=== PATIENT | male | born 1990 | race African-American/Black ===

== ENCOUNTER 2020-08-18 21:13 | Emergency (ER) | payer OTHER, BC, SELFPAY ==
--- NOTE | ~2020-08-18 | XR_ITS ---
XR elbow LT min 3V 08/18/2020 22:58 INDICATION: Left elbow pain after fall PROCEDURE: 4 views left elbow COMPARISON: No prior studies for comparison. FINDINGS: Fracture, dislocation or subluxation is not identified. The soft tissues appear within norm al limits. No foreign bodies are identified. IMPRESSION: 1: NO ACUTE BONE OR JOINT ABNORMALITY IDENTIFIED. Reviewed, dictated and finalized at location A.
--- NOTE | ~2020-08-18 | XR_ITS ---
XR wrist LT min 3V 08/18/2020 22:57 INDICATION: Left wrist pain after fall PROCEDURE: 4 views left wrist COMPARISON: No prior studies for comparison. FINDINGS: Fracture, dislocation or subluxation is not identified. The soft tissues appear within norm al limits. No foreign bodies are identified. IMPRESSION: 1: NO ACUTE BONE OR JOINT ABNORMALITY IDENTIFIED. Reviewed, dictated and finalized at location A.
--- NOTE | ~2020-08-18 | XR_ITS ---
XR finger 3rd RT min 2V 08/18/2020 22:58 Indication: Right third finger pain after fall Procedure: 3 views right third finger Comparison: No prior studies for comparison. Findings: There is a punctate avulsion fracture ventral aspect of the PIP joint, age indeterminate. N o other fracture identified. No significant soft tissue abnormality. No foreign bodies. Impression: 1: Age-indeterminate punctate avulsion fracture ventral aspect of the right third PIP joint. Correlat e for point tenderness. Reviewed, dictated and finalized at location A. Impression: 1: Age-indeterminate punctate avulsion fracture ventral aspect of the right thi rd PIP joint. Correlate for point tenderness.
--- NOTE | ~2020-08-18 | XR_ITS ---
XR tibia fibula LT 2V 08/18/2020 22:57 INDICATION: Left leg pain after fall PROCEDURE: 2 views left leg COMPARISON: No prior studies for comparison. FINDINGS: There is an avulsion fracture of tibial tuberosity. Mild adjacent soft tissue swelling. No other fracture. Ankle mortise intact. Knee joint and anatomic alignment. No foreign bodies.. IMPRESSION: 1: Avulsion fracture of tibial tuberosity. Reviewed, dictated and finalized at location A.
[2020-08-18 21:42] VITALS: BP 164/93; PULSE 78; RESP 18; TEMP 36.6; O2SAT 100
[2020-08-18] MEDS: TETANUS,DIPHTHERIA,AC PERTUSSIS ADULT (0.5 ML) BOOSTRIX IM (22:57)
--- NOTE | 2020-08-18 23:35 | ED.UPPEXIN ---
HPI - Extremity Injury (Upper) General Chief Complaint: Extremity Injury, Upper Stated Complaint: Injury to left arm Time Seen by Provider: 08/18/20 21:58 Source: patient Mode of arrival: ambulatory Limitations: no limitations History of Present Illness HPI narrative: Patient is a 30 year old male who presents after a fall off of box truck. Patient reports landing on left leg and left arm. Patient reports left wrist and elbow pain, reports left lower leg pain and pain to right 3rd digit. Abrasions noted on left arm and leg. Patient denies other injuries. Patient denies taking otc medications prior to arrival. Patient reports tetanus is not up to date. Related Data Home Medications Medication Instructions Recorded Confirmed No Home Medications 08/18/20 08/18/20 Allergies Allergy/AdvReac Type Severity Reaction Status Date / Time No Known Allergies Allergy Verified 08/18/20 21:15 Review of Systems Review of Systems: Narrative: CONSTITUTIONAL: Denies fever, chills, or sweats. EYES: Denies visual changes, redness, or discharge. ENT: Denies rhinorrhea, congestion, sore throat, or otalgia. CARDIOVASCULAR: Denies chest pain, palpitations, or edema. RESPIRATORY: Denies cough or dyspnea. GASTROINTESTINAL: Denies abdominal pain, nausea, vomiting, or diarrhea. GENITOURINARY: Denies dysuria or hematuria. SKIN: Denies rash or itching. MUSCULOSKELETAL: Left wrist, left elbow and left lower leg pain NEUROLOGIC: Denies headache, numbness, dizziness, or weakness. PSYCHIATRIC: Denies anxiety or depression. [facility] Social History Social History Smoking status: Current some day smoker Tobacco type: cigars Alcohol intake: current Alcohol use details: Occasional Substance use: never Living arrangements: with family Occupation/Education: occupation Gender identity (if verbalized by the patient): Male Comments At the time of signature, I have reviewed and agree with nursing past medical, surgical, social, and family history unless otherwise noted. Please see nursing chart for further information. There is no relevant family history pertinent to the presenting complaint. Exam Narrative: Exam Narrative: GENERAL: Well-appearing, well-nourished, and in no acute distress. HEAD: Normocephalic, atraumatic. EYES: EOMI. No redness or drainage. Conjunctiva are normal. ENT: Mucous membranes pink and moist. CHEST: No respiratory distress. Clear to auscultation. HEART: Regular rate and rhythm. MUSCULOSKELETAL: No bony tenderness. EXTREMITIES: Abrasion to left forearm, tenderness to left wrist with palpation, no deformity noted. SKIN: Warm, dry, no rash. NEURO: No focal deficits. Alert and oriented x3. Gait steady. PSYCH: Normal affect. No signs of depression or anxiety. Course Vital Signs Vital signs: Vital Signs Temperature 36.6 C 08/18/20 21:42 Pulse Rate 78 08/18/20 21:42 Respiratory Rate 18 08/18/20 21:42 Blood Pressure 164/93 H 08/18/20 21:42 Pulse Oximetry 100 08/18/20 21:42 Temperature 36.6 C 08/18/20 21:42 Pulse Rate 64 08/19/20 00:37 Respiratory Rate 16 08/19/20 00:37 Blood Pressure 164/93 H 08/18/20 21:42 Pulse Oximetry 100 08/19/20 00:37 Reviewed. Patient has been instructed to follow-up with his PCP regarding his blood pressure. MDM - Extremity Injury (Upper) Differential Diagnosis Differential diagnosis: Likely sprain and strain of wrist, fracture of wrist and other (Fracture ankle, fracture knee, abrasion, sprain, contusion) Imaging Data Radiologist's impression: ITS Impressions Elbow X-Ray 08/18/20 22:59 IMPRESSION: 1: NO ACUTE BONE OR JOINT ABNORMALITY IDENTIFIED. Finger X-Ray 08/18/20 23:00 Impression: 1: Age-indeterminate punctate avulsion fracture ventral aspect of the right third PIP joint. Correlate for point tenderness. Tibia/Fibula X-Ray 08/18/20 23:02 IMPRESSION: 1: Avuls
--- NOTE | 2020-08-18 23:46 | PC.NURSE ---
pt resting on stretcher in no acute distress. resps even/nonlabored. visitor at bedside. a/o x 4.
[2020-08-19 00:37] VITALS: PULSE 64; RESP 16; O2SAT 100
== END 2020-08-19 00:39 | disposition home or self-care (01) ==
PROVIDERS: Emergency Provider Nurse Practitioner
DX: S82.152A Displaced fracture of left tibial tuberosity, initial encounter for closed fracture (principal); S62.602A Fracture of unspecified phalanx of right middle finger, initial encounter for closed fracture; S63.502A Unspecified sprain of left wrist, initial encounter; S66.912A Strain of unspecified muscle, fascia and tendon at wrist and hand level, left hand, initial encounter; Z23 Encounter for immunization; F17.290 Nicotine dependence, other tobacco product, uncomplicated; W17.89XA Other fall from one level to another, initial encounter
CPT/HCPCS: 73080; 73110; 73140; 73590; 90471; 90715; 99284

== ENCOUNTER 2020-09-18 07:25 | Outpatient (CLI) | payer OTHER, SELFPAY ==
--- NOTE | ~2020-09-18 | MR_ITS ---
EXAMINATION: MR wrist LT wo con DATE: 09/18/2020 08:35 INDICATION: Left wrist pain. TECHNIQUE: Magnetic resonance imaging (MRI) of the wrist was performed without intravenous contrast. Sequences performed include coronal T1-weighted FSE, coronal PD-weighted FS FSE, axial PD-weighted FS FSE, axial PD-weighted FSE, sagittal PD-weighted FSE, and sagittal PD-weighted FS FSE. COMPARISON: Left wrist radiographs 08/18/2020 FINDINGS: Intrinsic ligaments: The scapholunate and lunotriquetral ligaments are intact. Triangular fibrocartilage complex (TFCC): The triangular fibrocartilage is intact. Extensor wrist: There is mild tendinopathy in the second, third, fourth, and sixth extensor compartments. There is mi ld tenosynovitis of extensor pollicis longus. Partially visualized is edema of the the myotendinous j unction of extensor pollicis longus, consistent with strain. Flexor wrist: The flexor tendons are normal. Median nerve is normal. Guyon's canal: The ulnar nerve is normal. Bones/other: Bone alignment is normal. There is bone marrow edema in dorsal aspect of scaphoid and dorsal aspect o f distal radius, consistent with stress reaction. The joint spaces are normal. IMPRESSION: 1. Bone marrow edema in the dorsal aspects of scaphoid and distal radius, consistent with stress reac tion. 2. Partially visualized strain of extensor pollicis longus muscle. Mild tendinopathy involving many o f the extensor tendons. Reviewed, dictated and finalized at location A. IMPRESSION: 1. Bone marrow edema in the dorsal aspects of scaphoid and distal radius, consi stent with stress reaction. 2. Partially visualized strain of extensor pollicis longus muscle. Mild tendino kiran involving many of the extensor tendons.
== END 2020-09-18 07:26 | disposition home or self-care (01) ==
PROVIDERS: Visit Provider Orthopaedic Surgery
DX: M25.532 Pain in left wrist (principal)
CPT/HCPCS: 73221

== ENCOUNTER 2020-11-29 09:00 | Outpatient (RCR) | payer OTHER, SELFPAY ==
--- NOTE | 2020-11-11 11:29 | OTOPEVAL ---
OCCUPATIONAL THERAPY INITIAL EVALUATION REPORT 11/11/20 Joselito presents today, 12 weeks following left scaphoid fracture, with a decline in left UE use for ADLs, driving, and weight bearing due to weakness and pain. Instructed in strengthening HEP to help improve the stability and mechanics of the left wrist to facilitate reduced pain with use and weight bearing. Patient has excellent understanding of HEP. Plan to have patient follow up again next week to check in on HEP followed by a reassessment in 2 weeks to assess readiness for discharge. Thank you for referring Joselito Mcconnell to [facility].? The patient is scheduled to be seen for therapy? 0-1x/week for 3 weeks. Please review, sign, date and return this plan of care WERO. I agree with and certify that the following plan of care is medically necessary. Referring Physician Date Referring Provider: Griffin Ruiz MD *OT Outpatient Evaluation Outpatient Past Medical History Past Medical History Source of Past Medical History Patient Neurological History Hx Neurological Disorders No Significant History Cardiovascular History Hx Cardiac Disorders No Significant History Respiratory History Hx Respiratory Disorders No Significant History Gastrointestinal History Hx Gastrointestinal Disorders No Significant History Genitourinary History Hx Genitourinary Disorders No Significant History Musculoskeletal History Hx Musculoskeletal Disorders No Significant History Hematological History Hx Hematological Disorders No Significant History Endocrine History Hx Endocrine Disorders No Significant History HEENT History Hx HEENT Disorders No Significant History Integumentary History Hx Skin Disorders No Significant History Reproductive History Hx Reproductive Disorders No Significant History Psychosocial History Hx Psychiatric Disorders No Significant History Pain History History of Any Previous or Ongoing No Significant History Instance of Pain Evaluation Information Problem Diagnosis Left scaphoid fracture Onset 08/18/20 Cause Fell of truck @ work Subjective Information Patient states he has not Query Text:As Reported By Patient/ returned back to work - [employer]. 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 Patient notices pain with weight bearing through the wrist, pain when playing with his kids, and pain when using the left hand on the steering wheel. Prior Level of Function Activity Level (Last 3 Months) Hand Dominance Right Activity of Daily Living Ability Independent Laundry Yes Driving Yes Pain Assessment Timing of Pain Assessment Timing of Pain Assessment Assessment Pain Scale
--- NOTE | 2020-11-18 11:48 | PCOTNOTE ---
Patient did not show up for scheduled appointment this date. Called patient and left voicemail reminding him of his next appt and reminding him to call to cancel or reschedule if he is unable to make the appointments.
--- NOTE | 2020-11-29 09:41 | OTOPEVAL ---
OCCUPATIONAL THERAPY RE-EVALUATION AND DISCHARGE SUMMARY 11/29/20 Joselito presents today for OT re-evaluation after completing strengthening HEP x2.5 weeks. Assessments today show the left wrist and hand strength has returned to normal limits. The patient also reports no pain with daily activities. No further skilled OT indicated at this time. D/C with goals met. Thank you for referring Joselito Mcconnell to [facility] [place] [facility] [place]. Please review, sign, date and return this D/C Note WERO. I agree with and certify that the following plan of care is medically necessary. Referring Physician Date Referring Provider: Griffin Ruiz MD *OT Outpatient Re-Evaluation Start: 11/11/20 10:30 Problem Diagnosis Left scaphoid fracture Onset 08/18/20 Cause Fell of truck @ work Subjective Information Patient reports return to Query Text:As Reported By Patient/ normal daily activities and Family being able to weight bear through the left hand/wrist without pain. Subjective reports of UE weakness. States he feels ready to return to work. Pain Assessment Timing of Pain Assessment Timing of Pain Assessment Re-assessment Self Report Self Report Pain Level 0 Pain Score Pain Score 0: Self Report Additional Pain Score Comments Patient reports no pain in the last week. Upper Extremity Range of Motion Elbow/Forearm Range of Motion Bilateral Reason Not Measured WNL/Left,WNL/Right Elbow/Forearm Range of Motion Comments Bilat elbow/forearm ROM is WNL and symmetrical. Wrist Range of Motion Left Wrist Flexion - Active 75 Wrist Extension - Active 70 Wrist Radial Deviation - Active 25 Wrist Ulnar Deviation - Active 35 Wrist Range of Motion Comments Left wrist ROM returned to normal limits Right Wrist Flexion - Active 70 Wrist Extension - Active 70 Wrist Radial Deviation - Active 25 Wrist Ulnar Deviation - Active 35 Finger Range of Motion Bilateral Reason Not Measured WNL/Left,WNL/Right Finger Range of Motion Comments Bilat finger/thumb active ROM is WNL and symmetrical. Upper Extremity Muscle Strength Testing Wrist Strength Bilateral Wrist Flexion Strength 5 Normal Wrist Extension Strength 5 Normal Wrist Strength Comments No pain with MMT. Patient is now able to easily complete 20+ reps of the wrist strengthening HEP with 3 lbs. At the initial evaluation he was only able to complete 10-
== END 2021-01-31 14:50 | disposition home or self-care (01) ==
LOC: ANHOT 09:00
PROVIDERS: Visit Provider Orthopaedic Surgery
DX: S62.002D Unspecified fracture of navicular [scaphoid] bone of left wrist, subsequent encounter for fracture with routine healing (principal)
CPT/HCPCS: 97110; 97165